=== PATIENT | female | born 1975 | race Hispanic/Latino ===

== ENCOUNTER 2022-07-03 11:02 | Emergency (ER) | payer OTHER ==
[~2022-07-03] VITALS: Ht 157.5 cm; Wt 89.8 kg
[2022-07-03] MEDS ORDERED: KETOROLAC 30MG VIAL (30MG/ML) IVP SCH (12:00)
[2022-07-03] MEDS ORDERED: ONDANSETRON 4MG INJ IVP SCH (12:00)
[2022-07-03] MEDS ORDERED: LACTATED RINGERS 1000ML 1,000 ML IV SCH (12:00)
[2022-07-03 12:22] LABS: BASOPHILS % (AUTO) 0.5 % (0.0-5.0); EOSINOPHILS % (AUTO) 1.4 % (0.0-8.0); HEMATOCRIT 36.6 % (36-48); LYMPHOCYTES % (AUTO) 27.7 % (21.0-51.0); MEAN CORPUSCULAR HEMOGLOBIN 24.2 pg (27.0-33.0); MEAN CORPUSCULAR HGB CONC 30.6 g/dL (32.0-36.0); MEAN CORPUSCULAR VOLUME 79.2 fL (79-99); MONOCYTES % (AUTO) 5.1 % (3.0-13.0); PLATELET COUNT (AUTO) 427 K/uL (130-400); RED BLOOD CELL COUNT(AUTO) 4.62 MIL/uL (4.00-5.50); RED CELL DISTRIBUTION WIDTH 14.6 % (11.0-15.5); WHITE BLOOD COUNT (AUTO) 7.3 K/uL (4.8-10.8)
[2022-07-03 12:23] LABS: APPEARANCE,URINE CLEAR (CLEAR); BILIRUBIN,URINE NEGATIVE (NEGATIVE); GLUCOSE, URINE (UA) NEGATIVE (NEGATIVE); KETONES,URINE NEGATIVE (NEGATIVE); LEUKOCYTE ESTERASE ,URINE NEGATIVE Leu/uL (NEGATIVE); NITRATE,URINE NEGATIVE (NEGATIVE); OCCULT BLOOD,URINE LARGE (NEGATIVE); PROTEIN,URINE NEGATIVE (NEGATIVE); UROBILINOGEN,URINE 0.2 mg/dL (0.2-1.0)
[2022-07-03 12:25] LABS: COLOR,URINE PINK (YELLOW); HCG,QUALITATIVE URINE NEGATIVE (NEGATIVE)
[2022-07-03 12:37] LABS: INR 0.93 (0.85-1.15); PROTHROMBIN TIME 10.1 SEC (9.6-11.6)
[2022-07-03 12:38] LABS: PARTIAL THROMBOPLASTIN TIME 28.2 SEC (26.3-35.5)
[2022-07-03 12:40] LABS: BACTERIA,URINE RARE /HPF (None Seen); SQUAMOUS EPITHELIAL CELL,UR RARE /HPF (0-2)
[2022-07-03 12:42] LABS: CREATININE 0.6 mg/dL (0.5-1.5); POTASSIUM 3.8 mmol/L (3.5-5.1)
[2022-07-03 12:44] LABS: WBC,URINE 0-1 /HPF (0-1)
[2022-07-03 12:47] LABS: ALBUMIN 3.4 g/dL (3.5-5.0); TOTAL PROTEIN, SERUM 7.8 g/dL (6.0-8.3)
[2022-07-03] MEDS ORDERED: OMEP40CA21 PO (13:07)
[2022-07-03] MEDS ORDERED: ONDA-104 PO (13:07)
[2022-07-03] MEDS ORDERED: IBUP-1493 PO (13:07)
[2022-07-03 13:54] VITALS: BP 113/70
== END 2022-07-03 13:55 | disposition home or self-care (01) ==
LOC: EDH 11:02
DX: R10.11 Right upper quadrant pain (principal); R11.0 Nausea; R63.0 Anorexia; K21.9 Gastro-esophageal reflux disease without esophagitis
CPT/HCPCS: 99285; 96374; 76705; 96361; 96375; 82550; 84484; 80053; 83690; 85025; 85610; 85730; 81001; 81025; 36415; J7120; J2405; J1885